=== PATIENT | male | born 1945 | race Caucasian/White ===

== ENCOUNTER 2018-12-06 07:34 | Day surgery (SDC) | payer MEDICARE ==
[2018-12-05 11:25] VITALS: BMI 29.0
[2018-12-06] MEDS ORDERED: ePHEDrine 50 MG/ML VIAL ONE (11:01)
[2018-12-06] MEDS ORDERED: Lidocaine 1% PF 5 ML VIAL ONE (11:01)
[2018-12-06] MEDS ORDERED: PROPOFOL 200 MG/20 ML VIAL ONE (11:01)
--- NOTE | 2018-12-06 12:18 | OP ---
DATE OF PROCEDURE: 12/06/2018 PROCEDURE PERFORMED: Colonoscopy, surveillance. INDICATION FOR PROCEDURE: Personal history of colonic polyps (prior colonoscopy 6 years ago with 1 polyp removed and recommendations to repeat in 5 years). DESCRIPTION OF PROCEDURE: After the risks and benefits of the procedure were explained to the patient including risks of bleeding, infection, perforation, reactions to anesthesia, aspiration and/or pain, informed consent was obtained. The patient was then taken to the endoscopy suite, where deep sedation was administered via propofol and the anesthesia support. Once adequate sedation was achieved, a digital rectal examination was performed, followed by introduction of the standard colonoscope, which was then advanced to the cecum with some difficulty secondary to diverticular disease/tortuosity of the sigmoid colon that required manual abdominal pressure to facilitate passage of the scope. The quality of the prep was excellent with good views achieved. The scope was then slowly withdrawn with careful examination of the mucosa within. Upon completion of the procedure, all equipment was removed from the patient and he was transferred to Day Stay in satisfactory condition. FINDINGS: Digital rectal exam, normal findings were seen on external examination. COLON FINDINGS: Normal-appearing mucosa was seen at the appendiceal orifice as well as the ileocecal valve. Normal-appearing mucosa was then seen in the cecum, ascending colon, transverse colon and descending colons. Numerous large and small amount of diverticula were seen in the distal descending and sigmoid colons, although no other mucosal abnormalities were seen in this region. Normal-appearing mucosa was then seen in the rectum. No abnormalities were seen on rectal retroflexion. IMPRESSION: 1. [id number] left-sided diverticulosis. 2. Otherwise normal colonoscopy. RECOMMENDATIONS: 1. Would place the patient on a higher fiber diet given the presence of diverticulosis today. 2. Would restart anticoagulation today given lack of biopsies or polyps or polypectomy performed today. 3. Continue all other medications. 4. Would repeat colonoscopy in 10 years for surveillance. The patient has a family history of colon cancer, but his father was diagnosed at the age of 75 (which places this patient at average risk). 5. Followup in the GI clinic as needed. Job ID: [id number]
== END 2018-12-06 12:53 | disposition home or self-care (01) ==
LOC: SDC 07:34
PROVIDERS: ATTEND Internal Medicine
PROC: 0DJD8ZZ Inspection of Lower Intestinal Tract, Via Natural or Artificial Opening Endoscopic (ICD-10-PCS; principal; 2018-12-06)
DX: Z12.11 Encounter for screening for malignant neoplasm of colon (principal); E11.22 Type 2 diabetes mellitus with diabetic chronic kidney disease; N18.9 Chronic kidney disease, unspecified; M19.90 Unspecified osteoarthritis, unspecified site; Z86.010 Personal history of colon polyps; Z79.84 Long term (current) use of oral hypoglycemic drugs; Z79.899 Other long term (current) drug therapy; Z87.891 Personal history of nicotine dependence
CPT/HCPCS: 82962; G0121; 36416; J2001; J2704; J3490

== ENCOUNTER 2019-07-06 14:00 | Emergency (ER) | payer MEDICARE ==
[~2019-07-06 14:00] MED LIST: Iopamidol-370 76% 500 ML 1 ML ONE
[2019-07-06 14:43] LABS: Hemoglobin 15.5 g/dL (14.0-18.0); Mean Corpuscular HGB CONC 33.5 g/dL (32.0-36.0); Mean Corpuscular Hemoglobin 29.8 pg (27.0-31.0); Mean Corpuscular Volume 88.9 fL (78.0-98.0); Mean Platelet Volume 7.7 fL (7.4-10.4); Platelet Count 209 thou/uL (130-400); RBC Distribution Width 12.7 % (11.5-14.5); Red Blood Cell (RBC) Count 5.21 mill/uL (4.70-6.10); White Blood Cell (WBC) Count 5.5 thou/uL (4.8-10.8)
[2019-07-06 15:02] LABS: Band 7 % (5-11); Lymphocytes 7 % (21-51); MDiff Complete? YES; Monocytes 18 % (0-10); Neutrophil 57 % (42-75); Platelet Morphology Comment Appears Adequate; Polychromasia SLIGHT = 2-3 cells (100X) (0-2/hpf); Reactive Lymphocytes 11 % (0-10)
[2019-07-06 15:05] LABS: ALT (SGPT) 25 U/L (8-55); AST (SGOT) 24 U/L (5-34); Albumin 4.2 g/dL (3.4-4.8); Alkaline Phosphatase 70 U/L (40-110); Anion Gap 16 mmol/L (10-20); BUN (Urea Nitrogen) 36 mg/dL (8.4-25.7); Bilirubin, Total 0.6 mg/dL (0.2-1.2); Calc. Creatinine Clearance 0 mL/min (70-130); Calcium 9.7 mg/dL (7.8-10.44); Carbon Dioxide 22 mmol/L (23-31); Chloride 103 mmol/L (98-107); Estimated GFR-MDRD 41; Globulin 3.7 g/dL (2.4-3.5); Glucose 116 mg/dL (83-110); Potassium 4.3 mmol/L (3.5-5.1); Protein, Total 7.9 g/dL (5.8-8.1); Sodium 137 mmol/L (136-145)
--- NOTE | 2019-07-06 15:13 | RAD ---
PORTABLE CHEST: Date: 07/06/2019 INDICATION: Chest pain. FINDINGS: Lungs appear clear. No infiltrate or vascular congestion. Heart size normal. IMPRESSION: No acute lung process. POS: [facility]
--- NOTE | 2019-07-06 16:15 | CT ---
CT CHEST AND ABDOMEN WITH IV CONTRAST FOLLOWING AORTOGRAM PROTOCOL: Technique: Multiplanar reconstruction and 3D post processing performed according to aortogram protoco l. Indication: Shortness of breath. Chest pain. Assess for aortic dissection. FINDINGS: Thoracic aorta shows atherosclerotic change. There is no evidence of dissection of aneurysmal dilatat ion. Abdominal aorta also shows mild atherosclerotic change. No evidence of dissection. Mild ectasia in th e lower abdominal aorta with diameter measuring 2.5 cm. Aortic bifurcation is patent. No stenosis of the major aortic branches. Soft tissues: Review of the lung chase show chronic lung parenchymal changes. There are scattered bu llae bilaterally and hyperexpansion. There are numerous small nodules seen bilaterally, more numerous on the right. 5 mm nodule in the right mid lung and other small scattered nodules with at least one which may be calcified. Follow up chest CT is recommended to confirm stability. The mediastinum is unremarkable. Images through the abdomen show an unremarkable liver, spleen, pancreas, and kidneys, bowel loops unr emarkable. There is a large exophytic cyst arising from the inferior left kidney which measures 7 cm. Adrenal gl ands normal. Osseous structures show degenerative spine change. IMPRESSION: 1. No evidence of thoracic or abdominal aortic dissection. Mild ectasia of the abdominal aorta and at herosclerotic changes as described. 2. Chronic lung parenchymal changes with scattered bullae and small subcentimeter nodules seen in bot h lungs, more numerous on the right. Some of these are calcified. Follow up CT chest without contrast in 6 months is recommended to confirm stability. 2. Large left renal cystic lesion. Code T Code: Lung nodule POS: [facility]
== END 2019-07-06 16:27 | disposition home or self-care (01) ==
LOC: ERS 14:00
DX: B34.9 Viral infection, unspecified (principal); E11.9 Type 2 diabetes mellitus without complications; I10 Essential (primary) hypertension; Z86.73 Personal history of transient ischemic attack (TIA), and cerebral infarction without residual deficits; Z79.899 Other long term (current) drug therapy
CPT/HCPCS: 71045; 71275; 72191; 74175; 80053; 83605; 83880; 84484; 85025; 93005; Q9967

== ENCOUNTER 2020-06-17 13:51 | Outpatient (CLI) | payer MEDICARE | END 2020-06-17 13:52 | disposition home or self-care (01) | LOC: BICCT 13:51 | PROVIDERS: ATTEND Family Medicine | DX: N28.1 Cyst of kidney, acquired (principal); G89.29 Other chronic pain; K57.30 Diverticulosis of large intestine without perforation or abscess without bleeding | CPT/HCPCS: 74176 ==

== ENCOUNTER 2020-07-19 15:14 | Emergency (ER) | payer MEDICARE ==
[2020-07-19 16:16] LABS: Hemoglobin 14.8 g/dL (14.0-18.0); Mean Corpuscular HGB CONC 33.8 g/dL (32.0-36.0); Mean Corpuscular Hemoglobin 30.2 pg (27.0-31.0); Mean Corpuscular Volume 89.4 fL (78.0-98.0); Mean Platelet Volume 7.6 fL (7.4-10.4); Platelet Count 192 thou/uL (130-400); RBC Distribution Width 12.7 % (11.5-14.5); White Blood Cell (WBC) Count 5.4 thou/uL (4.8-10.8)
[2020-07-19 16:35] LABS: ALT (SGPT) 18 U/L (8-55); AST (SGOT) 17 U/L (5-34); Alkaline Phosphatase 65 U/L (40-110); Anion Gap 15 mmol/L (10-20); BUN (Urea Nitrogen) 34 mg/dL (8.4-25.7); Bilirubin, Total 0.7 mg/dL (0.2-1.2); Calc. Creatinine Clearance 0 mL/min (70-130); Calcium 9.5 mg/dL (7.8-10.44); Carbon Dioxide 21 mmol/L (23-31); Chloride 103 mmol/L (98-107); Globulin 3.9 g/dL (2.4-3.5); Glucose 130 mg/dL (83-110); Potassium 4.1 mmol/L (3.5-5.1); Protein, Total 7.9 g/dL (5.8-8.1); Sodium 135 mmol/L (136-145)
[2020-07-19 16:36] LABS: Band 14 % (5-11); Eosinophils 1 % (0-10); Lymphocytes 4 % (21-51); MDiff Complete? YES; Monocytes 20 % (0-10); Neutrophil 54 % (42-75); Platelet Morphology Comment Appears Adequate; RBC Morphology Normal; Reactive Lymphocytes 7 % (0-10)
== END 2020-07-19 17:20 | disposition home or self-care (01) ==
LOC: ERS 15:14
DX: G56.01 Carpal tunnel syndrome, right upper limb (principal); M19.031 Primary osteoarthritis, right wrist; E11.9 Type 2 diabetes mellitus without complications; I10 Essential (primary) hypertension; Z86.73 Personal history of transient ischemic attack (TIA), and cerebral infarction without residual deficits; Z79.899 Other long term (current) drug therapy
CPT/HCPCS: 36415; 80053; 83605; 85025; 87040

== ENCOUNTER 2022-03-13 12:49 | Outpatient (CLI) | payer MEDICARE | END 2022-03-13 12:50 | disposition home or self-care (01) | LOC: RAD 12:49 | PROVIDERS: ATTEND Internal Medicine Critical Care Medicine | DX: R06.00 Dyspnea, unspecified (principal) | CPT/HCPCS: 71046 ==

== ENCOUNTER 2022-05-24 20:08 | Inpatient (IN) | payer OTHER, MEDICARE ==
[2022-05-24] MEDS ORDERED: Ketorolac Tromethamine 30 MG/ML VIAL ONE (20:40)
[2022-05-24] MEDS ORDERED: Methocarbamol 500 MG TAB PO SCH (21:00)
[2022-05-24 21:04] LABS: #Basophils 0.1 thou/uL (0.0-0.2); #Eosinphils 0.1 thou/uL (0.0-0.7); #Lymphocytes 0.4 thou/uL (1.20-3.40); #Monocytes 0.3 thou/uL (0.11-0.59); #Neutrophils 7.2 thou/uL (1.40-6.50); %Eosinophils 1.3 % (0.0-10.0); %Lymphocytes 4.5 % (21.0-51.0); %Monocytes 4.2 % (0.0-10.0); Hemoglobin 13.5 g/dL (14.0-18.0); Mean Corpuscular HGB CONC 33.2 g/dL (32.0-36.0); Mean Corpuscular Hemoglobin 28.4 pg (27.0-31.0); Mean Corpuscular Volume 85.8 fl (78.0-98.0); Mean Platelet Volume 7.8 fL (7.4-10.4); Platelet Count 238 10x3/uL (130-400); RBC Distribution Width 14.9 % (11.5-14.5); Red Blood Cell (RBC) Count 4.73 mill/uL (4.70-6.10); White Blood Cell (WBC) Count 8.1 10x3/uL (4.8-10.8)
[2022-05-24 21:26] LABS: ALT (SGPT) 17 U/L (8-55); AST (SGOT) 21 U/L (5-34); Albumin 3.5 g/dL (3.4-4.8); Alkaline Phosphatase 90 U/L (40-110); Anion Gap 14 mmol/L (10-20); BUN (Urea Nitrogen) 25 mg/dL (8.4-25.7); Bilirubin, Total 0.4 mg/dL (0.2-1.2); Calc. Creatinine Clearance 0 mL/min (70-130); Calcium 9.1 mg/dL (7.8-10.44); Carbon Dioxide 22 mmol/L (23-31); Chloride 102 mmol/L (98-107); Estimated GFR 64; Globulin 4.2 g/dL (2.4-3.5); Glucose 141 mg/dL (83-110); Potassium 3.7 mmol/L (3.5-5.1); Protein, Total 7.7 g/dL (5.8-8.1); Sodium 134 mmol/L (136-145)
[2022-05-24] MEDS ORDERED: Ondansetron PF 4 MG/2 ML Vial ONE (22:24)
[2022-05-24] MEDS ORDERED: Morphine 4 MG/ML VIAL ONE (22:24)
[2022-05-24] MEDS ORDERED: hydrALAZINE 20 MG/ML VIAL SLOW IVP PRN (23:08)
[2022-05-24] MEDS ORDERED: Ondansetron PF 4 MG/2 ML Vial IVP PRN (23:08)
[2022-05-24] MEDS ORDERED: Ipratropium/Albuterol 3 ML NEB NEB PRN ×2 (23:08→23:12)
[2022-05-24] MEDS ORDERED: Sodium Chloride 0.9% 1,000 ML IV SCH (23:15)
[2022-05-25] MEDS ORDERED: Dextrose 50% Abboject 50 ML SYRINGE SLOW IVP PRN (00:07)
[2022-05-25] MEDS ORDERED: Dextrose 5% in Water 1,000 ML IV PRN (00:07)
[2022-05-25] MEDS ORDERED: HumaLOG 300 UNITS/3 ML VIAL SC PRN (00:07)
[2022-05-25] MEDS: Acetaminophen 500 MG TAB PO SCH ×5 (01:00→23:12)
[2022-05-25] MEDS ORDERED: Calcium Chloride 1 GM/10 ML Abboject SYRINGE IVP SCH (01:15)
[2022-05-25 04:02] VITALS: BMI 27.6
[2022-05-25 04:21] LABS: SARS-CoV-2 NAA Rapid Test Not Detected (NotDetected)
[2022-05-25] MEDS ORDERED: Morphine 2 MG/ML VIAL ONE (05:27)
[2022-05-25] MEDS ORDERED: Ondansetron PF 4 MG/2 ML Vial ONE ×2 (05:27→13:23)
[2022-05-25] MEDS ORDERED: Calcium Chloride 1 GM/10 ML Abboject SYRINGE ONE ×2 (06:04→06:05)
[2022-05-25] MEDS ORDERED: Acetaminophen 500 MG TAB ONE (06:29)
[2022-05-25] MEDS ORDERED: CEFAZOLIN 2 GM in Sodium Chloride 0.9% 100 ML IVPB SCH (07:30)
[2022-05-25] MEDS ORDERED: Labetalol HCl 100 MG/20 ML VIAL ONE (08:19)
[2022-05-25 08:42] LABS: INR-International Normal Ratio 1.1; PTT 42.1 sec (22.9-36.1)
[2022-05-25] MEDS ORDERED: Labetalol HCl 100 MG TAB PO SCH (09:00)
[2022-05-25] MEDS: Labetalol HCl 100 MG TAB PO SCH ×2 (10:20→21:48)
[2022-05-25] MEDS: Famotidine/PF 20 mg/2ml Vial SLOW IVP SCH ×2 (10:20→21:46)
[2022-05-25] MEDS: Senokot S 8.6-50 MG TAB PO SCH ×2 (10:21→21:46)
[2022-05-25] MEDS: Rosuvastatin 20 MG TAB PO SCH (10:21)
[2022-05-25] MEDS: Polyethylene Glycol 3350 17 GM Packet PO SCH (10:21)
[2022-05-25] MEDS: Tamsulosin HCl 0.4 MG CAP PO SCH (10:21)
[2022-05-25] MEDS ORDERED: fentaNYL PF 100 MCG/2 ML SYRINGE ONE (12:46)
[2022-05-25] MEDS ORDERED: CEFAZOLIN 2 GM VIAL ONE (13:03)
[2022-05-25] MEDS ORDERED: Sodium Chloride 0.9% 100 ML ONE (13:03)
[2022-05-25] MEDS ORDERED: ePHEDrine 50 MG/ML VIAL ONE (13:23)
[2022-05-25] MEDS ORDERED: Glycopyrrolate 0.2 MG/ML 5 ML SYRINGE ONE (13:23)
[2022-05-25] MEDS ORDERED: PHENYLEPHRINE-NS 100 MCG/ML 10 ML SYRINGE ONE (13:23)
[2022-05-25] MEDS ORDERED: NEOSTIGMINE 3 MG/3 ML SYR 3 MG/3 ML SYRINGE ONE (13:23)
[2022-05-25] MEDS ORDERED: PROPOFOL 200 MG/20 ML VIAL ONE (13:23)
[2022-05-25] MEDS ORDERED: Rocuronium Bromide 10 MG/ML (10ML VIAL) ONE (13:23)
[2022-05-25] MEDS ORDERED: Lidocaine 1% PF 5 ML VIAL ONE (13:23)
[2022-05-25] MEDS ORDERED: Dexamethasone 20 MG/5 ML VIAL ONE (13:23)
[2022-05-25] MEDS ORDERED: Phenylephrine 10 MG/ML VIAL ONE (13:36)
[2022-05-25] MEDS ORDERED: SUGAMMADEX SODIUM 200 MG/2 ML VIAL ONE (14:12)
[2022-05-25] MEDS ORDERED: Ondansetron HCl/PF 4 MG/2 ML Vial IVP PRN (14:26)
[2022-05-25] MEDS ORDERED: Promethazine HCl 25 MG/ML VIAL IM PRN (14:26)
[2022-05-25] MEDS ORDERED: Fentanyl 100 MCG/2 ML VIAL ONE (14:38)
[2022-05-25] MEDS: Cyclobenzaprine 10 MG TAB PO PRN (21:47)
[2022-05-25] MEDS: CEFAZOLIN 2 GM in Sodium Chloride 0.9% 100 ML IVPB SCH (21:47)
[2022-05-25] MEDS: Morphine 2 MG/ML VIAL SLOW IVP PRN (23:08)
[2022-05-26] MEDS: Acetaminophen 500 MG TAB PO SCH ×3 (05:11→18:00)
[2022-05-26] MEDS: Cyclobenzaprine 10 MG TAB PO PRN (05:12)
[2022-05-26] MEDS: Morphine 2 MG/ML VIAL SLOW IVP PRN (05:12)
[2022-05-26 05:42] LABS: #Lymphocytes 0.5 thou/uL (1.20-3.40); #Monocytes 0.5 thou/uL (0.11-0.59); #Neutrophils 6.7 thou/uL (1.40-6.50); %Eosinophils 0.3 % (0.0-10.0); %Lymphocytes 6.1 % (21.0-51.0); %Monocytes 5.9 % (0.0-10.0); %Neutrophils 87.8 % (42.0-75.0); Hemoglobin 10.7 g/dL (14.0-18.0); Mean Corpuscular HGB CONC 32.3 g/dL (32.0-36.0); Mean Corpuscular Hemoglobin 28.1 pg (27.0-31.0); Mean Corpuscular Volume 86.8 fl (78.0-98.0); Mean Platelet Volume 8.2 fL (7.4-10.4); Platelet Count 210 10x3/uL (130-400); RBC Distribution Width 14.5 % (11.5-14.5); Red Blood Cell (RBC) Count 3.81 mill/uL (4.70-6.10); White Blood Cell (WBC) Count 7.6 10x3/uL (4.8-10.8)
[2022-05-26] MEDS: CEFAZOLIN 2 GM in Sodium Chloride 0.9% 100 ML IVPB SCH ×2 (06:30→14:30)
[2022-05-26] MEDS: Famotidine/PF 20 mg/2ml Vial SLOW IVP SCH (08:47)
[2022-05-26] MEDS: Tamsulosin HCl 0.4 MG CAP PO SCH (08:48)
[2022-05-26] MEDS: Labetalol HCl 100 MG TAB PO SCH ×2 (08:48→20:30)
[2022-05-26] MEDS: Senokot S 8.6-50 MG TAB PO SCH ×2 (08:48→20:30)
[2022-05-26] MEDS: Polyethylene Glycol 3350 17 GM Packet PO SCH (08:48)
[2022-05-26] MEDS: traMADol HCl 50 MG TAB PO PRN ×2 (08:51→20:30)
[2022-05-26] MEDS: Rosuvastatin 20 MG TAB PO SCH (08:57)
[2022-05-26] MEDS: Clopidogrel Bisulfate 75 MG TAB PO SCH (11:14)
[2022-05-26] MEDS: traMADol HCl 50 MG TAB PO SCH ×2 (11:15→18:01)
[2022-05-27] MEDS: Acetaminophen 500 MG TAB PO SCH ×3 (00:54→11:32)
[2022-05-27] MEDS: traMADol HCl 50 MG TAB PO SCH ×3 (00:54→11:33)
[2022-05-27 05:36] LABS: #Basophils 0.1 thou/uL (0.0-0.2); #Eosinphils 0.4 thou/uL (0.0-0.7); #Lymphocytes 0.5 thou/uL (1.20-3.40); #Monocytes 0.4 thou/uL (0.11-0.59); #Neutrophils 4.4 thou/uL (1.40-6.50); %Basophils 2.1 % (0.0-1.0); %Eosinophils 7.5 % (0.0-10.0); %Lymphocytes 7.9 % (21.0-51.0); %Monocytes 7.1 % (0.0-10.0); %Neutrophils 75.5 % (42.0-75.0); Hemoglobin 9.6 g/dL (14.0-18.0); Mean Corpuscular HGB CONC 32.6 g/dL (32.0-36.0); Mean Corpuscular Hemoglobin 28.1 pg (27.0-31.0); Mean Corpuscular Volume 86.4 fl (78.0-98.0); Mean Platelet Volume 7.9 fL (7.4-10.4); Platelet Count 176 10x3/uL (130-400); RBC Distribution Width 14.7 % (11.5-14.5); White Blood Cell (WBC) Count 5.9 10x3/uL (4.8-10.8)
[2022-05-27 07:20] LABS: Calcium 8.8 mg/dL (7.8-10.44); Chloride 103 mmol/L (98-107); Potassium 3.6 mmol/L (3.5-5.1); Sodium 135 mmol/L (136-145)
[2022-05-27 07:21] LABS: Glucose 138 mg/dL (83-110)
[2022-05-27 07:22] LABS: Anion Gap 13 mmol/L (10-20); Carbon Dioxide 23 mmol/L (23-31)
[2022-05-27 07:24] LABS: Calc. Creatinine Clearance 50 mL/min (70-130); Estimated GFR 45; Phosphorus 3.1 mg/dL (2.3-4.7)
[2022-05-27 07:25] LABS: BUN (Urea Nitrogen) 41 mg/dL (8.4-25.7)
[2022-05-27 07:26] LABS: Magnesium 1.9 mg/dL (1.6-2.6)
[2022-05-27] MEDS: Senokot S 8.6-50 MG TAB PO SCH (07:34)
[2022-05-27] MEDS: Clopidogrel Bisulfate 75 MG TAB PO SCH (07:34)
[2022-05-27] MEDS: Polyethylene Glycol 3350 17 GM Packet PO SCH (07:34)
[2022-05-27] MEDS: Labetalol HCl 100 MG TAB PO SCH (07:34)
[2022-05-27] MEDS: Tamsulosin HCl 0.4 MG CAP PO SCH (07:34)
[2022-05-27] MEDS: Rosuvastatin 20 MG TAB PO SCH (10:20)
[2022-05-27] MEDS: Cyclobenzaprine 10 MG TAB PO PRN (10:24)
[2022-05-27 12:43] VITALS: BP 122/71; TEMP 98.3
== END 2022-05-27 16:00 | DRG 481 ==
LOC: ERS 20:08 → ERHOLD 23:12 → SURG A 23:50
PROVIDERS: ADMIT Orthopaedic Surgery; ATTEND Specialist
PROC: 0QS634Z Reposition Right Upper Femur with Internal Fixation Device, Percutaneous Approach (ICD-10-PCS; principal; 2022-05-25)
DX: S72.141A Displaced intertrochanteric fracture of right femur, initial encounter for closed fracture (principal); I69.351 Hemiplegia and hemiparesis following cerebral infarction affecting right dominant side; N17.9 Acute kidney failure, unspecified; I10 Essential (primary) hypertension; E11.9 Type 2 diabetes mellitus without complications; Z20.822 Contact with and (suspected) exposure to COVID-19; R33.9 Retention of urine, unspecified; M62.838 Other muscle spasm; W01.0XXA Fall on same level from slipping, tripping and stumbling without subsequent striking against object, initial encounter; Y92.009 Unspecified place in unspecified non-institutional (private) residence as the place of occurrence of the external cause; Z79.899 Other long term (current) drug therapy; Z79.02 Long term (current) use of antithrombotics/antiplatelets; Z98.890 Other specified postprocedural states; Z87.891 Personal history of nicotine dependence
CPT/HCPCS: 36415; 36416; 71045; 72192; 80048; 80053; 82533; 83735; 84100; 85025; 85610; 85730; 93005; 96374; 96375; C1713; J1100; J1885; J2270; J2272; J2370; J2405; J2704; J3010; J3490; J7050; P9045; S0028; U0002

== ENCOUNTER 2022-06-04 15:00 | Inpatient (IN) | payer MEDICARE ==
[2022-06-04] MEDS ORDERED: Fentanyl 100 MCG/2 ML VIAL ONE ×2 (16:06→21:04)
[2022-06-04 16:14] LABS: #Eosinphils 0.1 thou/uL (0.0-0.7); #Lymphocytes 0.6 thou/uL (1.20-3.40); #Monocytes 0.9 thou/uL (0.11-0.59); #Neutrophils 7.1 thou/uL (1.40-6.50); %Basophils 0.2 % (0.0-1.0); %Eosinophils 1.5 % (0.0-10.0); %Lymphocytes 6.8 % (21.0-51.0); %Monocytes 9.9 % (0.0-10.0); %Neutrophils 81.6 % (42.0-75.0); Hemoglobin 10.3 g/dL (14.0-18.0); Mean Corpuscular HGB CONC 33.6 g/dL (32.0-36.0); Mean Corpuscular Hemoglobin 29.6 pg (27.0-31.0); Mean Corpuscular Volume 88.1 fl (78.0-98.0); Mean Platelet Volume 7.4 fL (7.4-10.4); Platelet Count 325 10x3/uL (130-400); RBC Distribution Width 15.8 % (11.5-14.5); Red Blood Cell (RBC) Count 3.49 mill/uL (4.70-6.10); White Blood Cell (WBC) Count 8.7 10x3/uL (4.8-10.8)
[2022-06-04 16:34] LABS: Bacteria/HPF None Seen HPF (None Seen); Bilirubin Negative (Negative); Blood, Urine 2+ (Negative); Clarity Clear (Clear); Glucose, Urine (Dipstick) Normal (Negative); Ketone, Urine Negative (Negative); Leukocyte 25 Leu/uL (Negative); Nitrite Negative (Negative); Protein, Urine (Dipstick) 20 mg/dL (Neg-Trace); RBC/HPF 21-50 HPF (0-3); Specific Gravity, Urine 1.025 (1.002-1.036); Squamous Epithelial None Seen HPF (0-3); Urobilinogen Normal mg/dL (Less than 2)
[2022-06-04 16:34] LABS: Acetaminophen Less than 10.0 mcg/mL (10.0-30.0); Alcohol Less than 10 mg/dL (Less than 10); Salicylate Less than 8.0 mg/dL (15.0-30.0)
[2022-06-04 16:35] LABS: ALT (SGPT) 14 U/L (8-55); AST (SGOT) 29 U/L (5-34); Albumin 3.5 g/dL (3.4-4.8); Alkaline Phosphatase 78 U/L (40-110); Anion Gap 16 mmol/L (10-20); BUN (Urea Nitrogen) 32 mg/dL (8.4-25.7); Bilirubin, Total 1.3 mg/dL (0.2-1.2); Calc. Creatinine Clearance 0 mL/min (70-130); Calcium 9.5 mg/dL (7.8-10.44); Carbon Dioxide 23 mmol/L (23-31); Chloride 103 mmol/L (98-107); Estimated GFR 57; Glucose 118 mg/dL (83-110); Lipase 18 U/L (8-78); Potassium 3.8 mmol/L (3.5-5.1); Protein, Total 7.5 g/dL (5.8-8.1); Sodium 138 mmol/L (136-145)
[2022-06-04 16:42] LABS: Amphetamine Not Detected (NotDetected); Barbiturates Screen Not Detected (NotDetected); Benzodiazepine Screen Detected (NotDetected); Cocaine Metabolite Screen Not Detected (NotDetected); Methadone Not Detected (NotDetected); Methamphetamine Not Detected (NotDetected); Opiate Screen Not Detected (NotDetected); Oxycodone Screen Not Detected (NotDetected); Phencyclidine (PCP) Not Detected (NotDetected); THC/Cannabinoid Screen Not Detected (NotDetected); Tricyclic Screen Detected (NotDetected)
[2022-06-04 16:57] LABS: CKMB 3.9 ng/mL (0-6.6)
[2022-06-04] MEDS ORDERED: Haloperidol Lactate 5 MG/ML VIAL ONE (20:24)
[2022-06-04] MEDS ORDERED: diphenhydrAMINE 50 MG/ML VIAL ONE (20:25)
[2022-06-04] MEDS ORDERED: LORazepam 2 MG/ML SYR.(CARPUJECT) ONE (20:27)
[2022-06-04] MEDS ORDERED: Dextrose 5% in Water 1,000 ML IV PRN (21:40)
[2022-06-04] MEDS ORDERED: HumaLOG 300 UNITS/3 ML VIAL SC PRN (21:40)
[2022-06-04] MEDS ORDERED: Dextrose 50% Abboject 50 ML SYRINGE SLOW IVP PRN (21:40)
[2022-06-04 21:52] LABS: SARS-CoV-2 NAA Rapid Test Not Detected (NotDetected)
[2022-06-04] MEDS ORDERED: cefTRIAXone\\ROCEPHIN 1 GM VIAL ONE (22:22)
[2022-06-04 22:28] VITALS: BMI 27.1
[2022-06-04] MEDS: cefTRIAXone\\ROCEPHIN 1 GM in Sodium Chloride 0.9% 100 ML IVPB SCH (22:44)
[2022-06-04] MEDS: Lactated Ringer's 1,000 ML IV SCH (23:31)
[2022-06-04 23:43] LABS: Troponin I 0.028 ng/mL (< 0.028)
[2022-06-05 03:51] LABS: #Eosinphils 0.2 thou/uL (0.0-0.7); #Lymphocytes 0.7 thou/uL (1.20-3.40); #Monocytes 0.9 thou/uL (0.11-0.59); #Neutrophils 6.3 thou/uL (1.40-6.50); %Basophils 0.2 % (0.0-1.0); %Eosinophils 2.2 % (0.0-10.0); %Lymphocytes 8.2 % (21.0-51.0); %Monocytes 11.1 % (0.0-10.0); %Neutrophils 78.4 % (42.0-75.0); Hemoglobin 9.7 g/dL (14.0-18.0); Mean Corpuscular HGB CONC 32.6 g/dL (32.0-36.0); Mean Corpuscular Hemoglobin 28.6 pg (27.0-31.0); Mean Corpuscular Volume 87.7 fl (78.0-98.0); Mean Platelet Volume 7.6 fL (7.4-10.4); Platelet Count 303 10x3/uL (130-400); RBC Distribution Width 16.3 % (11.5-14.5); Red Blood Cell (RBC) Count 3.38 mill/uL (4.70-6.10)
[2022-06-05 03:52] LABS: Anion Gap 14 mmol/L (10-20); BUN (Urea Nitrogen) 29 mg/dL (8.4-25.7); Calc. Creatinine Clearance 75 mL/min (70-130); Calcium 9.3 mg/dL (7.8-10.44); Carbon Dioxide 24 mmol/L (23-31); Chloride 104 mmol/L (98-107); Estimated GFR 74; Glucose 112 mg/dL (83-110); Potassium 3.5 mmol/L (3.5-5.1); Sodium 138 mmol/L (136-145)
[2022-06-05] MEDS ORDERED: LORazepam 2 MG/ML SYR.(CARPUJECT) ONE ×2 (05:42→06:29)
[2022-06-05] MEDS ORDERED: Lorazepam 2 MG/ML VIAL SLOW IVP SCH ×2 (05:45→06:30)
[2022-06-05] MEDS ORDERED: Ipratropium/Albuterol 3 ML NEB NEB SCH (06:30)
[2022-06-05 08:04] LABS: Actual Bicarbonate (HCO3a) 26.6 mEq/L (22-28); Analyzer IN Cardio ER; Base Excess (BEa) 2.2 mEq/L (-2.0 to +3.0); CO2 Tension 40.6 mmHg (35.0-45.0); Hemoglobin (Hb) 10.7 g/dL (14.0-18.0); Potassium - ABG Lab 3.58 mmol/L (3.70-5.30); pH, Arterial 7.43 (7.35-7.45)
[2022-06-05 08:23] LABS: Puncture Site LBA
[2022-06-05 08:42] LABS: Troponin I 0.025 ng/mL (< 0.028)
[2022-06-05] MEDS: Allopurinol 100 MG TAB PO SCH (09:35)
[2022-06-05] MEDS: Amlodipine 10 MG TAB PO SCH (09:35)
[2022-06-05] MEDS: Alogliptin 25 MG TAB PO SCH (09:35)
[2022-06-05] MEDS: Clopidogrel Bisulfate 75 MG TAB PO SCH (09:36)
[2022-06-05] MEDS: Labetalol HCl 100 MG TAB PO SCH ×2 (09:36→21:17)
[2022-06-05] MEDS: Lactated Ringer's 1,000 ML IV SCH ×3 (18:52→22:44)
[2022-06-05] MEDS: Tamsulosin HCl 0.4 MG CAP PO SCH (21:17)
[2022-06-05] MEDS: Magnesium Oxide 400 MG TAB PO SCH (21:17)
[2022-06-05] MEDS: Rosuvastatin 20 MG TAB PO SCH (21:17)
[2022-06-05] MEDS: cefTRIAXone\\ROCEPHIN 1 GM in Sodium Chloride 0.9% 100 ML IVPB SCH (22:44)
[2022-06-06] MEDS ORDERED: Nitroglycerin 0.4 MG TAB (25 Tab Bottle) SL SCH ×2 (01:00→03:30)
[2022-06-06 01:12] LABS: Anion Gap 16 mmol/L (10-20); BUN (Urea Nitrogen) 24 mg/dL (8.4-25.7); Calc. Creatinine Clearance 92 mL/min (70-130); Calcium 9.2 mg/dL (7.8-10.44); Carbon Dioxide 21 mmol/L (23-31); Chloride 104 mmol/L (98-107); Estimated GFR 89; Glucose 113 mg/dL (83-110); Magnesium 1.7 mg/dL (1.6-2.6); Potassium 3.4 mmol/L (3.5-5.1); Sodium 138 mmol/L (136-145)
[2022-06-06 01:16] LABS: Troponin I 0.037 ng/mL (< 0.028)
[2022-06-06] MEDS ORDERED: Ipratropium/Albuterol 3 ML NEB NEB SCH (01:30)
[2022-06-06] MEDS ORDERED: Magnesium 2 GM/50 ML(in water) 2 GM in Premix Bag 1 BAG IVPB SCH (01:45)
[2022-06-06] MEDS: Acetaminophen 325 MG TAB PO PRN (02:16)
[2022-06-06] MEDS ORDERED: Ketorolac Tromethamine 30 MG/ML VIAL IVP SCH (03:30)
[2022-06-06] MEDS ORDERED: Nitroglycerin 0.4 MG TAB (25 Tab Bottle) SL PRN (03:31)
[2022-06-06 04:47] LABS: #Basophils 0.1 thou/uL (0.0-0.2); #Eosinphils 0.1 thou/uL (0.0-0.7); #Lymphocytes 0.3 thou/uL (1.20-3.40); #Monocytes 0.7 thou/uL (0.11-0.59); #Neutrophils 12.3 thou/uL (1.40-6.50); %Basophils 0.5 % (0.0-1.0); %Eosinophils 0.4 % (0.0-10.0); %Lymphocytes 2.2 % (21.0-51.0); %Monocytes 5.4 % (0.0-10.0); %Neutrophils 91.4 % (42.0-75.0); Hemoglobin 10.4 g/dL (14.0-18.0); Mean Corpuscular Hemoglobin 29.3 pg (27.0-31.0); Mean Corpuscular Volume 88.8 fl (78.0-98.0); Mean Platelet Volume 7.4 fL (7.4-10.4); Platelet Count 329 10x3/uL (130-400); RBC Distribution Width 15.5 % (11.5-14.5); Red Blood Cell (RBC) Count 3.54 mill/uL (4.70-6.10); White Blood Cell (WBC) Count 13.5 10x3/uL (4.8-10.8)
[2022-06-06] MEDS: Lactated Ringer's 1,000 ML IV SCH (04:52)
[2022-06-06 05:06] LABS: Troponin I 0.026 ng/mL (< 0.028)
[2022-06-06 05:07] LABS: Anion Gap 16 mmol/L (10-20); BUN (Urea Nitrogen) 27 mg/dL (8.4-25.7); Calc. Creatinine Clearance 89 mL/min (70-130); Calcium 9.2 mg/dL (7.8-10.44); Carbon Dioxide 21 mmol/L (23-31); Chloride 103 mmol/L (98-107); Estimated GFR 88; Glucose 137 mg/dL (83-110); Potassium 3.4 mmol/L (3.5-5.1); Sodium 137 mmol/L (136-145)
[2022-06-06 06:51] LABS: Phosphorus 3.2 mg/dL (2.3-4.7)
[2022-06-06] MEDS ORDERED: Potassium Chloride 20 MEQ TAB PO SCH (08:00)
[2022-06-06] MEDS: Alogliptin 25 MG TAB PO SCH (09:06)
[2022-06-06] MEDS: Labetalol HCl 100 MG TAB PO SCH ×2 (09:08→20:44)
[2022-06-06] MEDS: Clopidogrel Bisulfate 75 MG TAB PO SCH (09:09)
[2022-06-06] MEDS: Amlodipine 10 MG TAB PO SCH (09:09)
[2022-06-06] MEDS: Senokot S 8.6-50 MG TAB PO SCH (09:09)
[2022-06-06] MEDS: Allopurinol 100 MG TAB PO SCH (09:10)
[2022-06-06] MEDS ORDERED: Furosemide 40 MG/4 ML VIAL SLOW IVP SCH (09:45)
[2022-06-06] MEDS: Ipratropium/Albuterol 3 ML NEB NEB PRN (12:35)
[2022-06-06] MEDS: Rosuvastatin 20 MG TAB PO SCH (20:44)
[2022-06-06] MEDS: Magnesium Oxide 400 MG TAB PO SCH (20:44)
[2022-06-06] MEDS: Tamsulosin HCl 0.4 MG CAP PO SCH (20:44)
[2022-06-07] MEDS: Acetaminophen 325 MG TAB PO PRN ×2 (00:34→20:44)
[2022-06-07 05:08] LABS: #Eosinphils 0.2 thou/uL (0.0-0.7); #Lymphocytes 0.7 thou/uL (1.20-3.40); #Monocytes 0.9 thou/uL (0.11-0.59); #Neutrophils 10.3 thou/uL (1.40-6.50); %Basophils 0.1 % (0.0-1.0); %Eosinophils 1.3 % (0.0-10.0); %Lymphocytes 6.2 % (21.0-51.0); %Neutrophils 85.4 % (42.0-75.0); Hemoglobin 9.9 g/dL (14.0-18.0); Mean Corpuscular Hemoglobin 27.5 pg (27.0-31.0); Mean Corpuscular Volume 88.5 fl (78.0-98.0); Mean Platelet Volume 7.5 fL (7.4-10.4); Platelet Count 332 10x3/uL (130-400); RBC Distribution Width 15.8 % (11.5-14.5); Red Blood Cell (RBC) Count 3.59 mill/uL (4.70-6.10); White Blood Cell (WBC) Count 12.1 10x3/uL (4.8-10.8)
[2022-06-07 05:30] LABS: Anion Gap 15 mmol/L (10-20); BUN (Urea Nitrogen) 38 mg/dL (8.4-25.7); Calc. Creatinine Clearance 69 mL/min (70-130); Calcium 9.4 mg/dL (7.8-10.44); Carbon Dioxide 24 mmol/L (23-31); Chloride 101 mmol/L (98-107); Estimated GFR 66; Glucose 129 mg/dL (83-110); Potassium 3.2 mmol/L (3.5-5.1); Sodium 137 mmol/L (136-145)
[2022-06-07] MEDS: Potassium Chloride 20 MEQ in Premix Bag 1 BAG IVPB SCH ×2 (09:47→13:28)
[2022-06-07] MEDS: Alogliptin 25 MG TAB PO SCH (09:49)
[2022-06-07] MEDS: Amlodipine 10 MG TAB PO SCH (09:49)
[2022-06-07] MEDS: Senokot S 8.6-50 MG TAB PO SCH (09:50)
[2022-06-07] MEDS: Allopurinol 100 MG TAB PO SCH (09:51)
[2022-06-07] MEDS: Labetalol HCl 100 MG TAB PO SCH ×2 (09:51→20:44)
[2022-06-07] MEDS: Clopidogrel Bisulfate 75 MG TAB PO SCH (09:56)
[2022-06-07] MEDS: Ipratropium/Albuterol 3 ML NEB NEB PRN ×2 (10:15→15:15)
[2022-06-07] MEDS ORDERED: Potassium Chloride 20 MEQ in Premix Bag 1 BAG IVPB SCH (14:00)
[2022-06-07] MEDS: Rosuvastatin 20 MG TAB PO SCH (20:44)
[2022-06-07] MEDS: Magnesium Oxide 400 MG TAB PO SCH (20:44)
[2022-06-07] MEDS: Tamsulosin HCl 0.4 MG CAP PO SCH (20:45)
[2022-06-08 04:35] LABS: #Eosinphils 0.3 thou/uL (0.0-0.7); #Lymphocytes 0.5 thou/uL (1.20-3.40); #Monocytes 0.8 thou/uL (0.11-0.59); #Neutrophils 9.7 thou/uL (1.40-6.50); %Eosinophils 2.5 % (0.0-10.0); %Lymphocytes 4.4 % (21.0-51.0); %Neutrophils 86.1 % (42.0-75.0); Hemoglobin 9.8 g/dL (14.0-18.0); Mean Corpuscular Hemoglobin 28.2 pg (27.0-31.0); Mean Corpuscular Volume 88.2 fl (78.0-98.0); Mean Platelet Volume 7.3 fL (7.4-10.4); Platelet Count 324 10x3/uL (130-400); RBC Distribution Width 15.4 % (11.5-14.5); Red Blood Cell (RBC) Count 3.49 mill/uL (4.70-6.10); White Blood Cell (WBC) Count 11.3 10x3/uL (4.8-10.8)
[2022-06-08 04:57] LABS: Anion Gap 15 mmol/L (10-20); BUN (Urea Nitrogen) 39 mg/dL (8.4-25.7); Calc. Creatinine Clearance 71 mL/min (70-130); Calcium 9.4 mg/dL (7.8-10.44); Carbon Dioxide 23 mmol/L (23-31); Chloride 101 mmol/L (98-107); Estimated GFR 70; Glucose 141 mg/dL (83-110); Potassium 3.4 mmol/L (3.5-5.1); Sodium 136 mmol/L (136-145)
[2022-06-08] MEDS: Clopidogrel Bisulfate 75 MG TAB PO SCH (08:30)
[2022-06-08] MEDS: Alogliptin 25 MG TAB PO SCH (08:30)
[2022-06-08] MEDS: Amlodipine 10 MG TAB PO SCH (08:30)
[2022-06-08] MEDS: Allopurinol 100 MG TAB PO SCH (08:30)
[2022-06-08] MEDS: Labetalol HCl 100 MG TAB PO SCH (08:30)
[2022-06-08] MEDS: Senokot S 8.6-50 MG TAB PO SCH (08:31)
[2022-06-08] MEDS ORDERED: Potassium Chloride 20 MEQ TAB PO SCH (09:00)
[2022-06-08] MEDS: Acetaminophen 325 MG TAB PO PRN (10:05)
[2022-06-08 16:40] VITALS: BP 130/70; TEMP 98.2
== END 2022-06-08 16:10 | DRG 91 ==
LOC: ERS 15:00 → ERHOLD 20:15 → 2NO 06-05 15:06 → OBSVTOIN 06-05 16:37
PROVIDERS: ADMIT Family Medicine; ATTEND Family Medicine
DX: G92.8 Other toxic encephalopathy (principal); J96.01 Acute respiratory failure with hypoxia; N39.0 Urinary tract infection, site not specified; J98.11 Atelectasis; Z20.822 Contact with and (suspected) exposure to COVID-19; I10 Essential (primary) hypertension; E78.5 Hyperlipidemia, unspecified; E11.9 Type 2 diabetes mellitus without complications; R94.31 Abnormal electrocardiogram [ECG] [EKG]; I25.10 Atherosclerotic heart disease of native coronary artery without angina pectoris; H91.90 Unspecified hearing loss, unspecified ear; T50.995A Adverse effect of other drugs, medicaments and biological substances, initial encounter; N40.0 Benign prostatic hyperplasia without lower urinary tract symptoms; M10.9 Gout, unspecified; Z79.899 Other long term (current) drug therapy; Z86.73 Personal history of transient ischemic attack (TIA), and cerebral infarction without residual deficits; Z87.891 Personal history of nicotine dependence
CPT/HCPCS: 36415; 36416; 36600; 70450; 71045; 71275; 80048; 80053; 80306; 80307; 81003; 81015; 82140; 82553; 82805; 83690; 83735; 83880; 84100; 84145; 84443; 84484; 85025; 86140; 87040; 87086; 87804; 93005; 93010; 93970; 94640; 96372; 96374; 96375; 96376; G0378; J0696; J1200; J1630; J1650; J1885; J1940; J2060; J3010; J3475; J3480; J3490; J7120; J7620; Q9967; U0002

== ENCOUNTER 2022-06-28 15:45 | Outpatient (CLI) | payer MEDICARE | END 2022-06-28 15:46 | disposition home or self-care (01) | LOC: BICRAD 15:45 | PROVIDERS: ATTEND Family Medicine | DX: Z47.1 Aftercare following joint replacement surgery (principal); Z96.641 Presence of right artificial hip joint | CPT/HCPCS: 71046 ==

== ENCOUNTER 2022-07-04 14:55 | Outpatient (CLI) | payer MEDICARE | END 2022-07-04 14:56 | disposition home or self-care (01) | LOC: BICCT 14:55 | PROVIDERS: ATTEND Urology | DX: N28.1 Cyst of kidney, acquired (principal); N20.2 Calculus of kidney with calculus of ureter; I31.39 Other pericardial effusion (noninflammatory); K57.30 Diverticulosis of large intestine without perforation or abscess without bleeding; I99.8 Other disorder of circulatory system | CPT/HCPCS: 71046; 74170 ==

== ENCOUNTER 2023-10-09 10:51 | Outpatient (CLI) | payer MEDICARE | END 2023-10-09 10:52 | disposition home or self-care (01) | LOC: BICRAD 10:51 | PROVIDERS: ATTEND Student in an Organized Health Care Education/Training Program | DX: M25.561 Pain in right knee (principal); M25.562 Pain in left knee; M17.0 Bilateral primary osteoarthritis of knee | CPT/HCPCS: 73565 ==